=== PATIENT | male | born 1980 | race Caucasian/White ===

== ENCOUNTER 2018-02-19 11:41 | Emergency (ER) | payer OTHER, SELFPAY ==
[2018-02-19 11:49] VITALS: BP 173/114; PULSE 84; RESP 16; TEMP 37.1; O2SAT 97
--- NOTE | 2018-02-19 12:15 | DI.CT_ITS ---
SYMPTOMS/DIAGNOSIS: LEFT INGUINAL PAIN AND SWELLING S/P LEG INJURY ABDOMINAL AND PELVIC CT: CT examination of the abdomen and pelvis was performed with a bolus infusion of 125 cc of Omnipaque 350. Images obtained through the lung bases are unremarkable. The liver is unremarkable in appearance except for a small right lobe low attenuation lesion, which may represent a cyst. Gallbladder and bile ducts are CT normal. The pancreas is unremarkable in appearance as is the spleen. Adrenals and kidneys appear normal. No urinary tract calcification or obstruction. No abdominal or pelvic adenopathy seen. Small bilateral fat- containing inguinal hernias are noted. Abdominal aorta is of normal diameter and no major vascular abnormality is seen. Appendix or appendiceal stump appears normal. No evidence of diverticulitis or bowel obstruction. CONCLUSION: No evidence of acute intraabdominal process.
--- NOTE | 2018-02-19 12:19 | W.ED.GENAD ---
Discharge Plan Discharge Details Chief Complaint: Abd Prob Clinical Impression: Inguinal strain Reason For Visit: LEG INJURY Primary Care Provider: WICHO,LOCAL ED Provider: Munir Melissa Disposition Patient Disposition: HOME Condition: Improving Home Meds and New Rx's Prescriptions: New ibuprofen 800 mg tablet 800 mg PO Q8H PRN (Reason: pain) Qty: 14 RF: 0 Continue metoprolol succinate 50 mg Tablet Extended Release 24 Hr 50 mg PO DAILY RF: 0 aspirin [Aspirin Low Dose] 81 mg Tablet,Delayed Release (Dr/Ec) 81 mg PO DAILY RF: 0 lisinopril-hydrochlorothiazide 10-12.5 mg Tablet 1 tab PO DAILY RF: 0 omeprazole magnesium [Prilosec OTC] 20 mg Tablet,Delayed Release (Dr/Ec) 40 mg PO DAILY PRNRF: 0 Discharge Instructions Instructions: Groin Strain (ED) Additional Instructions: Please follow-up with occupational medicine for recheck. No heavy lifting greater than 10 pounds for 1 week. Light duty at work. Return if he develop a fever, blood in the urine, worsening pain, bulge in the groin, or any other acute The occupational medicine office number: [phone] Stand Alone Forms: Work Release Medical Decision Making [facility] Narrative Medical decision making narrative: 37-year-old male presents with onset of left inguinal pain while externally rotating and abductor in his left leg entering the vehicle. He is afebrile and well-appearing, minimal distress, hypertensive with history of same. He has palpable mass in the left inguinal region. The patient's different diagnosis includes avulsion of groin muscle, hernia. IV placed, analgesia and fluids administered. Patient referred for laboratory testing and CT images. Diagnostics: Unremarkable chemistries, urinalysis unremarkable, CBC with white count 7, platelets 232, normal hematocrit of 45. Abdomen and pelvis CT with lymphadenopathy, small fat-containing hernias, no evidence of other abnormality. EKG reveals normal sinus rhythm, rate of 79, narrow QRS, no ST segment elevation Patient is improved, with some ongoing pain with movement of the left groin. May be muscle strain. Discussed with him that he will require 7-10 days off work with no heavy lifting, will refer to occupational medicine for recheck before return to work HPI - General Adult General Mode of arrival: ambulatory. Date/Time Provider Initiated Documentation: 02/19/18 12:02. Limitations to Documentation: no limitations. Information obtained by: patient. History of Present Illness 37 year old M presents to the emergency department with the chief complaint of Abdomina/groin pain, described as moderate, Quality is described as aching and sharp, and is localized to the abdomen and left. Immobilization improves symptom(s), Movement worsens symptoms . Patient notes no other symptoms.. HPI Narrative: 37-year-old male states he was climbing into the passenger Of an elevated pickup truck, grabbing upwards with his right hand and swinging his left leg in external rotation and abduction. He felt an immediate pop in the left groin and has had persistent sharp and aching pain that is worse with movement, nonradiating, without associated dysuria, nausea, or vomiting. States he has otherwise recently been well. He does not have any back pain Related Data Home Medications Medication Instructions Recorded Confirmed aspirin [Aspirin Low Dose] 81 mg PO DAILY 02/19/18 02/19/18 lisinopril-hydrochlorothiazide 1 tab PO DAILY 02/19/18 02/19/18 metoprolol succinate 50 mg PO DAILY 02/19/18 02/19/18 omeprazole magnesium [Prilosec OTC] 40 mg PO DAILY PRN 02/19/18 02/19/18 Previous Rx's Medication Instructions Recorded ibuprofen 800 mg PO Q8H PRN #14 tab 02/19/18 Allergies Allergy/AdvReac Type Severity Reaction Status Date / Time hydromorphone HCl AdvReac Severe violent Unverified 02/19/18 11:54 [From Dilaudid] behavior morphine AdvReac Severe violent Unverified 02/19/18 11:54 behavior hydromorphone [From Dilaudid] AdvReac Intermediate Psychosis Unverified 02/19/18 11:54 General Stated Complaint: Abd Prob MANE: 3 Review of Systems Review of Systems 8 systems reviewed, otherwise negative PFSH Social History Smoking/Tobacco Use Status: Current every day Exam Const General: cooperative and comfortable Nutritional Appearance: well nourished Orientation: alert, awake and oriented x3 HENMT Head: normal to inspection, normocephalic and atraumatic Eyes General: appearance normal, both eyes and all related structures Conjunctivae: conjunctivae normal Pupils: PERRL EOM: EOM intact bilaterally Resp Effort & Inspection: normal respiratory effort and able to speak in complete sentences Auscultation: clear to auscultation bilaterally Cardio Rate: regular rate Rhythm: regular rhythm Heart Sounds: no murmurs GI Inspection: normal to inspection and other (Tender to palpation left inguinal crease with approximately 3 cm area of mobile, tender firmness, question reducible.) Palpation: soft Auscultation: normal bowel sounds Skin Lesions: no lesions Rashes: no rashes Neuro General: alert, awake and oriented x3 Extrem General: normal to inspection, full ROM and normal capillary refill Psych Appearance: grossly normal Mental Status: mental status grossly normal Mood: congruent mood Affect: normal affect Course Vital Signs Temperature 37.1 C 02/19/18 11:49 Pulse 84 02/19/18 11:49 Respiratory Rate 16 02/19/18 11:49 Blood Pressure 173/114 H 02/19/18 11:49 Pulse Oximetry 97 02/19/18 11:49 Temperature 37.1 C 02/19/18 11:49 Pulse 84 02/19/18 11:49 Respiratory Rate 16 02/19/18 11:49 Blood Pressure 173/114 H 02/19/18 11:49 Pulse Oximetry 97 02/19/18 11:49
--- NOTE | 2018-02-19 12:24 | ED.GENADUL_ITS ---
Discharge Plan Discharge Details Chief Complaint: Abd Prob Clinical Impression: Inguinal strain Reason For Visit: LEG INJURY Primary Care Provider: WICHO,LOCAL ED Provider: Munir Melissa Disposition Patient Disposition: HOME Condition: Improving Home Meds and New Rx's Prescriptions: New ibuprofen 800 mg tablet 800 mg PO Q8H PRN (Reason: pain) Qty: 14 RF: 0 Continue metoprolol succinate 50 mg Tablet Extended Release 24 Hr 50 mg PO DAILY RF: 0 aspirin [Aspirin Low Dose] 81 mg Tablet,Delayed Release (Dr/Ec) 81 mg PO DAILY RF: 0 lisinopril-hydrochlorothiazide 10-12.5 mg Tablet 1 tab PO DAILY RF: 0 omeprazole magnesium [Prilosec OTC] 20 mg Tablet,Delayed Release (Dr/Ec) 40 mg PO DAILY PRNRF: 0 Discharge Instructions Instructions: Groin Strain (ED) Additional Instructions: Please follow-up with occupational medicine for recheck. No heavy lifting greater than 10 pounds for 1 week. Light duty at work. Return if he develop a fever, blood in the urine, worsening pain, bulge in the groin, or any other acute The occupational medicine office number: [phone] Stand Alone Forms: Work Release Medical Decision Making [facility] Narrative Medical decision making narrative: 37-year-old male presents with onset of left inguinal pain while externally rotating and abductor in his left leg entering the vehicle. He is afebrile and well-appearing, minimal distress, hypertensive with history of same. He has palpable mass in the left inguinal region. The patient's different diagnosis includes avulsion of groin muscle, hernia. IV placed, analgesia and fluids administered. Patient referred for laboratory testing and CT images. Diagnostics: Unremarkable chemistries, urinalysis unremarkable, CBC with white count 7, platelets 232, normal hematocrit of 45. Abdomen and pelvis CT with lymphadenopathy, small fat-containing hernias, no evidence of other abnormality. EKG reveals normal sinus rhythm, rate of 79, narrow QRS, no ST segment elevation Patient is improved, with some ongoing pain with movement of the left groin. May be muscle strain. Discussed with him that he will require 7-10 days off work with no heavy lifting, will refer to occupational medicine for recheck before return to work HPI - General Adult General Mode of arrival: ambulatory . Date/Time Provider Initiated Documentation: 02/19/18 12:02 . Limitations to Documentation: no limitations . Information obtained by: patient . History of Present Illness 37 year old M presents to the emergency department with the chief complaint of Abdomina/groin pain, described as moderate, Quality is described as aching and sharp, and is localized to the abdomen and left. Immobilization improves symptom(s), Movement worsens symptoms . Patient notes no other symptoms.. HPI Narrative: 37-year-old male states he was climbing into the passenger Of an elevated pickup truck, grabbing upwards with his right hand and swinging his left leg in external rotation and abduction. He felt an immediate pop in the left groin and has had persistent sharp and aching pain that is worse with movement, nonradiating, without associated dysuria, nausea, or vomiting. States he has otherwise recently been well. He does not have any back pain Related Data Home Medications Medication Instructions Recorded Confirmed aspirin [Aspirin Low Dose] 81 mg PO DAILY 02/19/18 02/19/18 lisinopril-hydrochlorothiazide 1 tab PO DAILY 02/19/18 02/19/18 metoprolol succinate 50 mg PO DAILY 02/19/18 02/19/18 omeprazole magnesium [Prilosec OTC] 40 mg PO DAILY PRN 02/19/18 02/19/18 Previous Rx's Medication Instructions Recorded ibuprofen 800 mg PO Q8H PRN #14 tab 02/19/18 Allergies Allergy/AdvReac Type Severity Reaction Status Date / Time hydromorphone HCl AdvReac Severe violent Unverified 02/19/18 11:54 [From Dilaudid] behavior morphine AdvReac Severe violent Unverified 02/19/18 11:54 behavior hydromorphone [From Dilaudid] AdvReac Intermediate Psychosis Unverified 11:54 General Stated Complaint: Abd Prob MANE: 3 Review of Systems Review of Systems 8 systems reviewed, otherwise negative PFSH Social History Smoking/Tobacco Use Status: Current every day Exam Const General: cooperative and comfortable Nutritional Appearance: well nourished Orientation: alert, awake and oriented x3 HENMT Head: normal to inspection, normocephalic and atraumatic Eyes General: appearance normal, both eyes and all related structures Conjunctivae: conjunctivae normal Pupils: PERRL EOM: EOM intact bilaterally Resp Effort & Inspection: normal respiratory effort and able to speak in complete sentences Auscultation: clear to auscultation bilaterally Cardio Rate: regular rate Rhythm: regular rhythm Heart Sounds: no murmurs GI Inspection: normal to inspection and other (Tender to palpation left inguinal crease with approximately 3 cm area of mobile, tender firmness, question reducible.) Palpation: soft Auscultation: normal bowel sounds Skin Lesions: no lesions Rashes: no rashes Neuro General: alert, awake and oriented x3 Extrem General: normal to inspection, full ROM and normal capillary refill Psych Appearance: grossly normal Mental Status: mental status grossly normal Mood: congruent mood Affect: normal affect Course Vital Signs Temperature 37.1 C 02/19/18 11:49 Pulse 84 02/19/18 11:49 Respiratory Rate 16 02/19/18 11:49 Blood Pressure 173/114 H 02/19/18 11:49 Pulse Oximetry 97 02/19/18 11:49 Temperature 37.1 C 02/19/18 11:49 Pulse 84 02/19/18 11:49 Respiratory Rate 16 02/19/18 11:49 Blood Pressure 173/114 H 02/19/18 11:49 Pulse Oximetry 97 02/19/18 11:49
[2018-02-19] MEDS: Lactated Ringers 1,000 ML 1000 ML IV (12:40)
[2018-02-19] MEDS: Ketorolac 15 MG/ML VIAL IVP (12:45)
[2018-02-19 12:48] LABS: Abs Immature Grans 0.03 k/cumm (0.0-0.09); Absolute Basophil Count 0.02 k/cumm (0.0-0.2); Absolute Eosinophil Count 0.12 k/cumm (0.0-0.7); Absolute Lymphocyte Count 1.93 k/cumm (1.2-3.4); Absolute Monocyte Count 0.46 k/cumm (0.11-0.7); Absolute Neutrophil Count 5.15 k/cumm (1.2-6.7); Basophils % 0.3; Eosinophils % 1.6; HCT 45.2 % (40.0-50.0); Immature Grans % 0.4; Mean Corp. HGB Concentration 35.4 g/dL (32.0-36.0); Mean Corpuscular Hemoglobin 31.1 pg (27.0-33.0); Mean Corpuscular Volume 87.9 fL (80-95); Mean Platelet Volume 9.3 fL (8.0-11.0); Neutrophils % 66.7; Platelet Count 232 x1000/uL (130-400); RBC 5.14 m/cumm (4.50-6.00); RBC Distribution Width 13.1 % (11.8-14.1); White Blood Cell Count 7.71 k/cumm (4.4-10.8)
[2018-02-19 13:07] LABS: ALT 34 U/L (12-78); AST 23 U/L (15-37); Albumin 3.7 g/dL (3.4-5.0); Alkaline Phosphatase 51 U/L (46-116); Anion Gap 8.1 mmol/L (3-11); BUN 9 mg/dL (7-18); Bilirubin, Total 0.4 mg/dL (0.2-1.0); CO2 27.9 mmol/L (21.0-32.0); CREATININE 0.87 mg/dL (0.70-1.30); Calcium 8.3 mg/dL (8.5-10.1); Chloride 105 mmol/L (98-107); Glucose 98 mg/dL (70-100); Potassium 3.5 mmol/L (3.5-5.1); Sodium 141 mmol/L (136-145); Total Protein 7.3 g/dL (6.4-8.2)
[2018-02-19 13:20] LABS: Bilirubin Negative (Negative); Blood Trace-intact (Negative); Clarity Clear; Glucose Negative (Negative); Ketones Negative (Negative); Leukocyte Esterase Negative (Negative); Nitrite Negative (Negative); Urobilinogen 0.2 EU/dL (Up TO 0.2)
[2018-02-19 13:28] LABS: Bacteria Rare HPF (Negative); C & S Indicated? No; Casts Negative LPF (Negative); Crystals Negative HPF (Negative); Epithelial Cells Negative HPF (Negative); Mucus Negative (Negative); Other Cells Negative (Negative); RBC 0-2 (0-2); WBC 0-2 HPF (0-5)
[2018-02-19] MEDS: Omnipaque 350 MG/ML 50 ML BTL IJ (13:54)
[2018-02-19] MEDS: Breeza Beverage 473 ML BTL PO (13:55)
[2018-02-19] MEDS: Omnipaque 350 MG/ML 100 ML BTL IJ (13:55)
[2018-02-19 14:50] VITALS: BP 159/121; PULSE 85; RESP 16; TEMP 37; O2SAT 97
== END 2018-02-19 15:00 | disposition home or self-care (01) ==
PROVIDERS: Emergency Provider Emergency Medicine
DX: S76.212A Strain of adductor muscle, fascia and tendon of left thigh, initial encounter (principal); X50.9XXA Other and unspecified overexertion or strenuous movements or postures, initial encounter; I10 Essential (primary) hypertension
CPT/HCPCS: 36415; 36416; 80053; 82962; 93005; 96361; 96374; 99285; 74177; 81003; 81015; 85025; 93010; 99284; J1885; J3490; Q9967

== ENCOUNTER 2018-08-09 19:59 | Emergency (ER) | payer SELFPAY ==
[2018-08-09 20:04] VITALS: BP 197/122; PULSE 97; RESP 16; TEMP 36.4; O2SAT 98
[2018-08-09] MEDS: Balanced Salt Solution 15 ML BTL OP (20:29)
[2018-08-09] MEDS: Tetracaine 0.5% 4 ML BTL OP (20:30)
[2018-08-09] MEDS: Fluorescein STRIPS 100/BOX 1 MG OP (20:30)
[2018-08-09] MEDS: Erythromycin Ophth Oint 3.5 GM TUBE OD (20:30)
--- NOTE | 2018-08-09 20:30 | W.ED.GENAD ---
Discharge Plan Disposition Patient Disposition: HOME Discharge Details Chief Complaint: EyeProblem Clinical Impression: Inflammation of eye, right, Corneal abrasion, right, Hypertension Primary Care Provider: Jamal Bertrand ED Provider: Kenny Galo Home Meds and New Rx's Prescriptions: New moxifloxacin 0.5 % drops See Rx Instructions .ROUTE .COMPLEX 7 Days RF: 0 Continued metoprolol succinate 50 mg Tablet Extended Release 24 Hr 50 mg PO DAILY RF: 0 aspirin [Aspirin Low Dose] 81 mg Tablet,Delayed Release (Dr/Ec) 81 mg PO DAILY RF: 0 lisinopril-hydrochlorothiazide 10-12.5 mg Tablet 1 tab PO DAILY RF: 0 Prilosec OTC 20 mg Tablet,Delayed Release (Dr/Ec) 40 mg PO DAILY PRNRF: 0 ibuprofen 800 mg tablet 800 mg PO Q8H PRN (Reason: pain) Qty: 14 RF: 0 Discharge Instructions Instructions: Moxifloxacin (Into the eye), Corneal Abrasion (ED) Additional Instructions: Use antibiotic as directed: apply 2 drop into the right eye every 2 hours while awake for 2 days, then every 4-8 hours for 5 days. Please contact your eyelet row marker to arrange follow-up. Follow-up with your primary care physician regarding her elevated blood pressure. It is extremely important to take your medication as prescribed. Return to the ER for any worsening or new concerning symptoms. Referrals: [facility] [Outside] Jamal Bertrand MD [Primary Care Provider] - Medical Decision Making 38-year-old male contact lens wearer with history of hypertension here with inflammation of his right eye. Punctate corneal abrasion noted at 11:00. Plan to treat with moxifloxacin. Usual and customary discharge instructions were provided. Patient was instructed to not use his contact lenses until symptoms completely cleared after a week of treatment. He was instructed to follow-up with his gasket inspector. Patient was informed of his elevated blood pressure. He notes that he is noncompliant with treatment regimen. I explained the importance of maintaining compliance with antihypertensive. I will give him a dose tonight as he is here in the hospital with his . He understands importance of continuing his antihypertensive as prescribed. I encouraged him to follow-up with his primary care physician. Smoking cessation counseling was provided. HPI General Mode of arrival: ambulatory. Date/Time Provider Initiated Documentation: 08/09/18 20:00. Limitations to Documentation: no limitations. Information obtained by: patient. HPI Narrative: 38-year-old male with history of hypertension, presents with chief complaint of right eye irritation. Patient notes that around noon today started to have some irritation right eye. Patient states he wears contact in this eye. He removed contact and symptoms have persisted. States feels like there is something in his eye. Symptoms seem worse right upper outer eye. He has had associated tearing. Clear tears. Mild swelling of the eye. No visual changes from baseline. Patient also notes he has been noncompliant with his antihypertensive regimen. Related Data Home Medications Medication Instructions Recorded Confirmed Prilosec OTC 40 mg PO DAILY PRN 02/19/18 08/09/18 aspirin [Aspirin Low Dose] 81 mg PO DAILY 02/19/18 08/09/18 ibuprofen 800 mg PO Q8H PRN #14 tab 02/19/18 08/09/18 lisinopril-hydrochlorothiazide 1 tab PO DAILY 02/19/18 08/09/18 metoprolol succinate 50 mg PO DAILY 02/19/18 08/09/18 moxifloxacin See Rx Instructions .ROUTE 08/09/18 .COMPLEX 7 Days ml Previous Rx's Medication Instructions Recorded ibuprofen 800 mg PO Q8H PRN #14 tab 02/19/18 moxifloxacin See Rx Instructions .ROUTE 08/09/18 .COMPLEX 7 Days ml Allergies Allergy/AdvReac Type Severity Reaction Status Date / Time hydromorphone HCl AdvReac Severe violent Unverified 08/09/18 20:09 [From Dilaudid] behavior morphine AdvReac Severe violent Unverified 08/09/18 20:09 behavior hydromorphone [From Dilaudid] AdvReac Intermediate Psychosis Unverified 08/09/18 20:09 General Stated Complaint: EyeProblem MANE: 4 Review of Systems Constitutional Denies fever(s) Eyes Reports as per HPI [facility] Medical History Hypertension (Chronic) Social History Smoking and Tabacco status: Current every day Exam Const General: cooperative, healthy appearing and comfortable Orientation: alert and awake [facility] General nose exam: external nose normal Face and sinus: normal facial exam Eyes Cornea: corneas abnormal on the right abrasion punctate and at the following clock position (11:00) and fluorescein used Pupils: PERRL EOM: EOM intact bilaterally Direct ophthalmoscopy: no papilledema Resp Effort & Inspection: normal respiratory effort Auscultation: clear to auscultation bilaterally Cardio Rate: regular rate Rhythm: regular rhythm Heart Sounds: S1 normal and S2 normal Neuro General: alert and oriented x3 Cognition: normal cognition Speech: speech normal Gait: normal gait Course Vital Signs Temperature 36.4 C L 08/09/18 20:04 Pulse 97 H 08/09/18 20:04 Respiratory Rate 16 08/09/18 20:04 Blood Pressure 197/122 H 08/09/18 20:04 Pulse Oximetry 98 08/09/18 20:04 Temperature 36.4 C L 08/09/18 20:04 Temperature Source Temporal Artery Scan 08/09/18 20:04 Pulse 97 H 08/09/18 20:04 Respiratory Rate 16 08/09/18 20:04 Respiratory Effort Non-Labored 08/09/18 20:07 Blood Pressure 197/122 H 08/09/18 20:04 Blood Pressure Position Sitting 08/09/18 20:04 Pulse Oximetry 98 08/09/18 20:04 Oxygen Delivery Method Room Air 08/09/18 20:04 Oxygen Flow Rate 0 08/09/18 20:04 Pain Level 3 08/09/18 20:04 Comment 08/09/18 20:04
[2018-08-09] MEDS: Metoprolol 25 MG TAB 50 MG PO (20:55)
[2018-08-09 20:58] VITALS: BP 185/114; PULSE 97; RESP 16; TEMP 36.4; O2SAT 98
== END 2018-08-09 21:05 | disposition home or self-care (01) ==
PROVIDERS: Emergency Provider Student in an Organized Health Care Education/Training Program; PCP Internal Medicine
DX: H57.89 Other specified disorders of eye and adnexa (principal); S05.01XA Injury of conjunctiva and corneal abrasion without foreign body, right eye, initial encounter; X58.XXXA Exposure to other specified factors, initial encounter; T46.4X6A Underdosing of angiotensin-converting-enzyme inhibitors, initial encounter; Z91.14 Patient's other noncompliance with medication regimen; I10 Essential (primary) hypertension
CPT/HCPCS: 99283

== ENCOUNTER 2019-05-28 10:46 | Outpatient (REF) | payer SELFPAY ==
[2019-05-28 22:35] LABS: Hemoglobin A1C 5.6 % (4.5-6.2)
[2019-05-28 22:42] LABS: ALT 39 U/L (16-63); AST 26 U/L (15-37); Anion Gap 11.4 mmol/L (3-11); BUN 9 mg/dL (7-18); CO2 26.6 mmol/L (21.0-32.0); CREATININE 0.77 mg/dL (0.70-1.30); Calcium 8.9 mg/dL (8.5-10.1); Calculated LDL 106 mg/dL; Chloride 104 mmol/L (98-107); Cholesterol 165 mg/dL (<200); Glucose 107 mg/dL (74-106); HDL Cholesterol 35 mg/dL (40-60); Sodium 142 mmol/L (136-145); Triglyceride 124 mg/dL (<150)
== END 2019-05-28 11:06 ==
LOC: NCHCN 10:46
PROVIDERS: PCP Internal Medicine; Visit Provider Nurse Practitioner Family
DX: I10 Essential (primary) hypertension (principal); Z13.220 Encounter for screening for lipoid disorders; Z13.1 Encounter for screening for diabetes mellitus
CPT/HCPCS: 80048; 80061; 83036; 84450; 84460

== ENCOUNTER 2020-12-10 11:10 | Emergency (ER) | payer SELFPAY ==
[2020-12-10 11:13] VITALS: BP 198/124; PULSE 91; RESP 16; TEMP 36.7; O2SAT 97
[2020-12-10 11:29] VITALS: BP 180/99
[2020-12-10 11:33] VITALS: BP 166/104
[2020-12-10 11:47] VITALS: BP 157/107
--- NOTE | 2020-12-10 12:27 | ED.GENADUL_ITS ---
Discharge Plan Disposition Patient Disposition: HOME Condition: Stable Discharge Details Clinical Impression: Hypertension Primary Care Provider: Jamal Bertrand ED Provider: Gautam Bautista Home Meds and New Rx's Prescriptions: New amlodipine 5 mg tablet 5 mg PO DAILY Qty: 30 RF: 0 Continued aspirin [Aspirin Low Dose] 81 mg Tablet,Delayed Release (Dr/Ec) 81 mg PO DAILY RF: 0 omeprazole magnesium [Prilosec OTC] 20 mg Tablet,Delayed Release (Dr/Ec) 40 mg PO DAILY PRNRF: 0 ibuprofen 800 mg tablet 800 mg PO Q8H PRN (Reason: pain) Qty: 14 RF: 0 hydroxyzine HCl 25 mg Tablet 25 mg PO TID RF: 0 diltiazem HCl 240 mg Capsule,Extended Release 24hr 240 mg PO DAILY RF: 0 hydrochlorothiazide 25 mg Tablet 25 mg PO DAILY RF: 0 Discontinued metoprolol succinate 50 mg Tablet Extended Release 24 Hr 50 mg PO DAILY RF: 0 lisinopril-hydrochlorothiazide 10-12.5 mg Tablet 1 tab PO DAILY RF: 0 Discharge Instructions Instructions: Hypertension (ED) Additional Instructions: At this time your blood pressure is still elevated but not emergent and you are asymptomatic. I personally spoke with your primary care provider, Dr. Cesar, the plan is to add on amlodipine as directed and her office will contact you on Sunday to discuss setting up an outpatient appointment. Continue taking your Prilosec, hydrochlorothiazide, diltiazem, hydroxyzine as directed. Watch for new or worsening symptoms and return to the ER for any concerns. Discharge Data Discharge Date/Time-TO BE ENTERED AT DEPARTURE: 12/10/20 12:45 Medical Decision Making 40-year-old gentleman, former smoker, obesity, uncontrolled hypertension, presents with a blood pressure reading on his home machine of 125/70. He is currently asymptomatic. Denies headache, visual changes, neck pain, chest pain, shortness of breath, numbness, tingling, weakness. He is neurologically intact. He is unsure of exactly what medications he takes. Patient was observed in the ER for over 1 hour, blood pressure readings continue to decline without any intervention, 198/124, 180/99, 166/104, 157/107. I was able to speak with Dr. Cesar, the patient's primary care provider. Able to confirm that he is currently taking Prilosec, hydrochlorothiazide, diltiazem and hydroxyzine. Discussed his most recent blood pressure of 157/107 and his presentation which is completely asymptomatic. No further emergent work-up required here in the ER. Will add on 5 mg amlodipine today and over the weekend, and she will have her office reach out to the patient on Sunday so that he may be seen in the office that day. Patient is comfortable with this plan and has no additional questions or concerns. He was encouraged to return to the ER for new or worsening symptoms. Medical Records Medical records reviewed: Yes I reviewed the patient's medical records. HPI General Mode of arrival: ambulatory . Date/Time Provider Initiated Documentation: 12/10/20 11:10 . Limitations to Documentation: no limitations . Information obtained by: patient . HPI Narrative: This is a 40-year-old male, past medical history of hypertension, presenting to the ER reporting a blood pressure at home this morning as high as 220/170. Patient reports that he was simply checking his blood pressure randomly, was asymptomatic and continues to be asymptomatic. He contacted his primary care office and was directed to the ER with a blood pressure that high. Patient reports a long history of hypertension, multiple medication changes, and most frequently started fresh approximately 6 months ago. He was discontinued from his chronic medications and began a new regimen. Unfortunately he is unsure exactly what these med ications are. Patient denies headache, visual change, neck pain, chest pain, shortness of breath, abdominal pain, nausea or vomiting, pain or swelling in his extremities. Patient is a former smoker. Patient is obese but reports that his weight has been fairly steady. Patient has no additional concerns or complaints at this time. Related Data Home Medications Medication Instructions Recorded Confirmed aspirin [Aspirin Low Dose] 81 mg PO DAILY 02/19/18 08/09/18 ibuprofen 800 mg PO Q8H PRN #14 tab 02/19/18 08/09/18 omeprazole magnesium [Prilosec OTC] 40 mg PO DAILY PRN 02/19/18 12/10/20 amlodipine 5 mg PO DAILY #30 tab 12/10/20 diltiazem HCl 240 mg PO DAILY 12/10/20 12/10/20 hydrochlorothiazide 25 mg PO DAILY 12/10/20 12/10/20 hydroxyzine HCl 25 mg PO TID 12/10/20 12/10/20 Previous Rx's Medication Instructions Recorded ibuprofen 800 mg PO Q8H PRN #14 tab 02/19/18 amlodipine 5 mg PO DAILY #30 tab 12/10/20 Allergies Allergy/AdvReac Type Severity Reaction Status Date / Time hydromorphone HCl AdvReac Severe violent Unverified 12/10/20 11:18 [From Dilaudid] behavior morphine AdvReac Severe violent Unverified 12/10/20 11:18 behavior hydromorphone [From Dilaudid] AdvReac Intermediate Psychosis Unverified 12/10/20 11:18 General Stated Complaint: GenMedical MANE: 4 Review of Systems Constitutional Constitutional: Denies fatigue, Denies fever(s) and Denies weakness Eyes Eyes: Denies change in vision ENT Ears, Nose, Mouth, and Throat: Denies neck pain Cardiovascular Cardiovascular: Denies chest pain and Denies dyspnea Respiratory Respiratory: Denies dyspnea Gastrointestinal Gastrointestinal: Denies abdominal pain, Denies nausea and Denies vomiting Musculoskeletal Musculoskeletal: Denies back pain, Denies neck pain, Denies numbness and Denies tingling Integumentary/Breasts Skin/Breast: Denies erythema Neurologic Neurologic: Denies numbness, Denies tingling and Denies weakness Endocrine Endocrine: Denies fatigue PFSH Medical History Hypertension Social History Smoking/Tobacco Use Status: Current every day Smoking risk assessment performed?: Yes Drug use: Never Do you feel safe at home: Yes Do you feel safe in your relationship?: Yes Exam Const General: cooperative, healthy appearing, comfortable and no acute distress Orientation: alert, awake and oriented x3 HENMT Head: normal to inspection, normocephalic and atraumatic Eyes General: appearance normal, both eyes and all related structures Conjunctivae: conjunctivae normal Neck Neck: normal visual inspection, full ROM, trachea midline and supple Resp Effort & Inspection: normal respiratory effort and able to speak in complete sentences Auscultation: clear to auscultation bilaterally Cardio Rate: regular rate Rhythm: regular rhythm GI Inspection: obesity Palpation: soft and nontender Back/Spine/Pelvis Back: No back tenderness Skin General skin exam: no rashes or lesions noted Neuro General: patient alert, patient awake, moves all extremities and no focal motor deficits Cognition: normal cognition Speech: speech normal Gait: normal gait Motor: muscle tone normal throughout Sensory Exam: no sensory deficits noted Extrem General: normal to inspection, full ROM, no pedal edema and no calf tenderness Psych Appearance: grossly normal Mental Status: mental status grossly normal Course Vital Signs Vital signs: Vital Signs Temperature 36.7 C 12/10/20 11:13 Pulse 91 H 12/10/20 11:13 Respiratory Rate 16 12/10/20 11:13 Blood Pressure 198/124 H 12/10/20 11:13 Pulse Oximetry 97 12/10/20 11:13 Temperature 36.7 C 12/10/20 11:13 Temperature Source Skin 12/10/20 11:13 Pulse 91 H 12/10/20 11:13 Respiratory Rate 16 12/10/20 11:13 Respiratory Effort Non-Labored 12/10/20 11:34 Respiratory Depth Normal 12/10/20 11:34 Respiratory Pattern Normal 12/10/20 11:34 Blood Pressure 157/107 H 12/10/20 11:47 Blood Pressure Position Sitting 12/10/20 11:13 Pulse Oximetry 97 12/10/20 11:13 Oxygen Delivery Method Room Air 12/10/20 11:13 Oxygen Flow Rate 0 12/10/20 11:13 Pain Level 0 12/10/20 11:13
[2020-12-10 12:30] VITALS: BP 172/104
== END 2020-12-10 12:45 | disposition home or self-care (01) ==
PROVIDERS: Emergency Provider Physician Assistant; PCP Internal Medicine
DX: I10 Essential (primary) hypertension (principal)
CPT/HCPCS: 99283

== ENCOUNTER 2021-12-11 10:42 | Emergency (ER) | payer MEDICAID, SELFPAY ==
[2021-12-11 10:56] VITALS: BP 157/118; PULSE 96; RESP 16; TEMP 36.9; O2SAT 96
--- NOTE | 2021-12-11 10:57 | ED.GENADUL_ITS ---
Discharge Plan Disposition Patient Disposition: HOME Condition: Stable Discharge Details Clinical Impression: Acute bacterial conjunctivitis of left eye Primary Care Provider: Jamal Bertrand ED Provider: Erna Hui Home Meds and New Rx's Prescriptions: Continued aspirin [Dax Low Dose Aspirin] 81 mg Tablet,Delayed Release (Dr/Ec) 81 mg PO DAILY omeprazole magnesium [Prilosec OTC] 20 mg Tablet,Delayed Release (Dr/Ec) 40 mg PO DAILY PRN ibuprofen 800 mg tablet 800 mg PO Q8H PRN (Reason: pain) Qty: 14 0RF hydroxyzine HCl 25 mg Tablet 25 mg PO TID diltiazem HCl 240 mg Capsule,Extended Release 24hr 240 mg PO DAILY hydrochlorothiazide 25 mg Tablet 25 mg PO DAILY amlodipine 5 mg tablet 5 mg PO DAILY Qty: 30 0RF Discharge Instructions Instructions: Conjunctivitis (ED) Additional Instructions: Apply half-inch ribbon of the erythromycin ointment to your left eye 4 times daily for the next 5 to 7 days. Wash your hands if you touch your face as bacterial conjunctivitis is contagious and can be spread easily to your other eye or other people. Follow-up with your primary care doctor in 1 week as needed. Return to the emergency department with any worsening or new concerning symptoms. Discharge Data Discharge Date/Time-TO BE ENTERED AT DEPARTURE: 12/11/21 11:19 Discharge Physician: Erna Hui Medical Decision Making 41-year-old male presents with left eye irritation, itching with yellow dischar ge and crusting that he noted upon awakening this morning. Denies any known exposure to bacterial conjunctivitis. Patient states he has had bacterial conjunctivitis in the past and states this is similar. Denies any known injury. Patient provided a picture on his cell phone of his left eye this morning upon awakening and there was significant eyelid edema and yellow crusting in his eye. There is no significant erythema at that time. He does have soft boggy edema of the left upper eyelid but no erythema or pain with EOMI that would suggest orbital cellulitis. He has left eye conjunctival injection. PERRLA. He otherwise appears comfortable and nontoxic. As this is similar to his previous presentation of conjunctivitis and there was report of yellow crusting and discharge, suspect most likely bacterial conjunctivitis at this time and do not see indication for labs or imaging as history and presentation does not appear consistent with orbital cellulitis. Patient was advised to apply erythromycin ointment 4 times daily to the left eye for the next 5 to 7 days and cool compresses to his eyelids as needed. Advised on importance of handwashing due to contagiousness. Advised to follow up with the primary care doctor for re- evaluation. Usual and customary return precautions given prior to discharge. Medical Records Medical records reviewed: Yes I reviewed the patient's medical records. HPI General Mode of arrival: ambulatory . Date/Time Provider Initiated Documentation: 12/11/21 10:57 . Limitations to Documentation: no limitations . Information obtained by: patient . HPI Narrative: Patient is a 41-year-old male with a history of hypertension, hyperlipidemia, obesity, GERD who presents to the ED with a complaint of left eye irritation, itching, eyelid swelling with yellow crusting and discharge that he noticed upon awakening this morning. He states he was unsure of any exposure to pinkeye but has had pinkeye several times before and states this feels similar. He denies any fever, headache, dizziness or known injury to his eyes. Related Data Home Medications Medication Instructions Recorded Confirmed aspirin 81 mg tablet,delayed 81 mg PO DAILY 02/19/18 12/11/21 release (Dax Low Dose Aspirin) ibuprofen 800 mg tablet 800 mg PO Q8H PRN pain #14 tabs 02/19/18 12/11/21 omeprazole magnesium 20 mg 40 mg PO DAILY PRN 02/19/18 12/11/21 tablet,delayed release (Prilosec OTC) amlodipine 5 mg tablet 5 mg PO DAILY #30 tabs 12/10/20 12/11/21 diltiazem HCl 240 mg 240 mg PO DAILY 12/10/20 12/11/21 capsule,extended release 24 hr hydrochlorothiazide 25 mg tablet 25 mg PO DAILY 12/10/20 12/11/21 hydroxyzine HCl 25 mg tablet 25 mg PO TID 12/10/20 12/11/21 Previous Rx's Medication Instructions Recorded ibuprofen 800 mg tablet 800 mg PO Q8H PRN pain #14 tabs 02/19/18 amlodipine 5 mg tablet 5 mg PO DAILY #30 tabs 12/10/20 Allergies Allergy/AdvReac Type Severity Reaction Status Date / Time hydromorphone HCl AdvReac Severe violent Unverified 12/11/21 10:59 [From Dilaudid] behavior morphine AdvReac Severe violent Unverified 12/11/21 10:59 behavior hydromorphone [From Dilaudid] AdvReac Intermediate Psychosis Unverified 12/11/21 10:59 General Stated Complaint: EyeProblem MANE: 4 Review of Systems All systems reviewed & are unremarkable except as noted in HPI and below Constitutional Constitutional: Reports as per HPI, Denies chills and Denies fever(s) Eyes Eyes: Denies blurry vision, Reports eye discharge, Reports irritation and Reports itchy eyes ENT Ears, Nose, Mouth, and Throat: Denies dizziness, Denies sore throat and Denies throat swelling Cardiovascular Cardiovascular: Denies chest pain and Denies dyspnea Respiratory Respiratory: Denies cough and Denies dyspnea Gastrointestinal Gastrointestinal: Denies abdominal pain, Denies diarrhea and Denies vomiting Genitourinary Genitourinary: Denies hematuria and Denies dysuria Musculoskeletal Musculoskeletal: Denies back pain and Denies numbness Integumentary/Breasts Skin/Breast: Denies lesions and Denies rash Neurologic Neurologic: Denies dizziness, Denies localized weakness and Denies numbness Allergic/Immunologic Allergic/Immunologic: Reports itchy eyes and Denies throat swelling PFSH All Active Problems (Updated 12/13/21 @ 08:53 by Erna Hui DO) Hypertension (Chronic) Acute bacterial conjunctivitis of left eye (Acute) Medical History (Updated 12/13/21 @ 08:53 by Erna Hui DO) GERD (gastroesophageal reflux disease) Hypertension Obesity ALISIA on CPAP Surgical History (Updated 12/13/21 @ 08:53 by Erna Hui DO) History of dental surgery History of knee surgery Social History Smoking/Tobacco Use Status: Current every day Tobacco Type: cigarettes Smoking risk assessment performed?: Yes Drug use: Never Substance use type: does not use Do you feel safe at home: Yes Do you feel safe in your relationship?: Yes Exam Const General: cooperative, healthy appearing and no acute distress Orientation: alert, awake and oriented x3 HENMT Head: normal to inspection Ears: hearing grossly normal bilaterally and external ears normal Mouth: oral mucosae normal Eyes General: appearance normal, both eyes and all related structures Conjunctivae: conjunctival abnormality left conjunctival injection diffuse Pupils: PERRL EOM: EOM intact bilaterally Eyes/upper lids images: 1. Left upper eyelid edema. Neck Neck: normal visual inspection Resp Effort & Inspection: normal respiratory effort and able to speak in complete sentences Cardio Rate: regular rate Skin General skin exam: no rashes or lesions noted Neuro General: patient alert, patient awake and patient oriented x3 Motor: muscle tone normal throughout Extrem General: normal to inspection and full ROM Psych Appearance: grossly normal Affect: normal affect
[2021-12-11] MEDS: Erythromycin Ophth Oint 3.5 GM TUBE OU (11:15)
== END 2021-12-11 11:19 | disposition home or self-care (01) ==
PROVIDERS: Emergency Provider Physician Assistant; PCP Internal Medicine
DX: H10.32 Unspecified acute conjunctivitis, left eye (principal); I10 Essential (primary) hypertension; F17.210 Nicotine dependence, cigarettes, uncomplicated
CPT/HCPCS: 99283; 99284

== ENCOUNTER 2022-03-22 16:23 | Outpatient (REF) | payer MEDICAID, SELFPAY ==
[2022-03-24 11:08] LABS: COVID-19 RT-PCR UVMMC Result Positive (Negative)
== END 2022-03-22 16:24 | disposition home or self-care (01) ==
LOC: LBN 16:23
PROVIDERS: PCP Internal Medicine; Visit Provider Physician Assistant Medical
DX: J02.9 Acute pharyngitis, unspecified (principal); Z20.822 Contact with and (suspected) exposure to COVID-19
CPT/HCPCS: U0003; 87070

== ENCOUNTER 2024-09-03 10:17 | Emergency (ER) | payer SELFPAY ==
[2024-09-03] VITALS (9 sets, daily range): BP systolic 153–202; BP diastolic 104–137; PULSE 101–107; RESP 12–24; TEMP 37.9; O2SAT 92–96
--- NOTE | 2024-09-03 10:30 | RT.EKG_ITS ---
APPROVED REPORT Exam: Resting ECG Reason for Exam: SOB chest pain Patient Location: E HR:101 bpm ECG Measurements Heart Rate 101 AXIS [place] 196 P 28 QRSd 95 QRS 28 QT 375 T 76 QTc 487 Conclusion Sinus tachycardia, rate 101 No interval abnormalities No STEMI Q waves V1-V2 No priors available for comparison
--- NOTE | 2024-09-03 11:02 | ED.GENADUL_ITS ---
Discharge Plan Disposition Patient Disposition: Home Condition: Stable Discharge Details Clinical Impression: Left upper lobe pneumonia, Hypertension Primary Care Provider: Jamal Bertrand ED Provider: Kyara Garcia Home Meds and New Rx's Prescriptions: New amoxicillin 500 mg capsule 1,000 mg PO TID 5 Days Qty: 30 0RF azithromycin 250 mg tablet 250 mg PO DAILY 4 Days Qty: 4 0RF Rx Instructions: start on day 2 of therapy (09/04/2024) benzonatate 100 mg capsule 100 mg PO TID PRNQty: 14 0RF No Action aspirin [Dax Low Dose Aspirin] 81 mg Tablet,Delayed Release (Dr/Ec) 81 mg PO DAILY omeprazole magnesium [Prilosec OTC] 20 mg Tablet,Delayed Release (Dr/Ec) 40 mg PO DAILY PRN ibuprofen 800 mg tablet 800 mg PO Q8H PRN (Reason: pain) Qty: 14 0RF hydroxyzine HCl 25 mg Tablet 25 mg PO TID diltiazem HCl 240 mg Capsule,Extended Release 24hr 240 mg PO DAILY hydrochlorothiazide 25 mg Tablet 25 mg PO DAILY amlodipine 5 mg tablet 5 mg PO DAILY Qty: 30 0RF Discharge Instructions Instructions: Pneumonia, Adult (DC) Additional Instructions: You were seen in the emergency department today for evaluation of a cough and back pain and were found to have left upper lobe pneumonia. In our department you had a full physical examination performed, had laboratory studies that were otherwise reassuring, with no evidence of white blood cell count elevation, electrolyte abnormalities, or ongoing damage to your heart. Your COVID and influenza test was negative. We provided you with your first dose of antibiotics today, and you need to complete the course of both antibiotics until they are gone, even if you start to feel better. Additionally I have provided you with a prescription for cough medication which you can take as needed, and should supplement this with Tylenol and ibuprofen for body aches and fever. As we discussed, you need to be evaluated by your primary care physician, to discuss not only this visit but also reinitiation of your high blood pressure medications and routine screening examinations that need to occur at your age. We do recommend that you return to an emergency department if you develop chest pain, sudden change or worsening of your shortness of breath, or any other symptoms that cause you concern. Please follow-up with your primary care provider in the next few days to discuss this visit and any symptoms that change, worsen, or persist. Thank you for allowing us to be part of your care. Stand Alone Forms: Work Release HPI General Mode of arrival: ambulatory . Date/Time Provider Initiated Documentation: 09/03/24 10:26 . Limitations to Documentation: no limitations . Information obtained by: patient and old records reviewed . HPI Narrative: HPI: This is a 44-year-old male patient with a history of hypertension who is presenting for evaluation of shortness of breath and cough. The patient reports that this cough has been present for a few weeks, he recently had upper respiratory infections in the home as he has 4 young children, states that his symptoms have been worsening. Today he noticed that he was unable to perform his daily activities such as walking and carrying things for work without becoming short of breath and needing to take breaks, which is atypical for him and prompted him to seek care. The patient reports that he is experiencing bilateral chest wall and back pain, which improves with hot showers. States that his cough is productive of white sputum, states that he smokes approximately a pack every day and a half of cigarettes, does not have a history of asthma or COPD and does not use any inhalers. No personal history of cardiac disease, thromboembolic disease, denies unilateral leg swelling or pain. Exam: Gen: Awake and alert, in no apparent distress HEENT: Non-icteric sclera Neck: Supple Lungs: No apparent respiratory distress, normal respiratory effort. Lung sounds clear and equal bilaterally without wheezes, rhonchi, rales, the patient does have a hacking cough appreciated during this provider's examination CV: Appears well perfused, heart with tachycardic rate but regular rhythm, strong distal pulses. Abdomen: Non-distended MSK: Moves 4 extremities without apparent limitation in ROM. Trace bilateral peripheral edema to the lower extremities, no calf tenderness Skin: Visualized skin without rashes, cyanosis. Neuro: Normal Gait, no obvious focal deficits or facial asymmetry. Speaks in full, clear sentences. Psych: Appropriate for situation. MDM: This is a 44-year-old male patient presenting for evaluation of shortness of breath and cough. Differential includes but is not limited to viral upper respiratory infection, pneumonia, certainly considered ACS, pericarditis and myocarditis, chest wall pain and costochondritis, pleurisy. I considered pulmonary edema and heart failure exacerbation given the trace peripheral edema though the patient has no history of same. No wheezing to suggest reactive airw ay disease exacerbation. The patient is without DVT symptoms, personal history or hypoxia to suggest pulmonary embolism, and the patient's symptoms are more concerning for an infectious process. However, he does not meet PERC criteria for PE rule out given his tachycardia. We will obtain a Fluvid swab, chest x-ray, and laboratory studies to include CBC, CMP, magnesium, troponin, D-dimer and BNP. ED Course: I reviewed the patient's x-ray, which shows a left upper lobe pneumonia, most consistent with the patient's symptoms. EKG reviewed by myself showing no acute ischemia, interval abnormality, or ectopy. I independently interpreted the laboratory studies, which show no significant leukocytosis, anemia, or thrombocytopenia. The chemistry panel is without evidence of electrolyte abnormality, kidney dysfunction, or liver injury. COVID and influenza screening was negative, BNP is not significantly elevated at 644, initial troponin 63 which is below our cutoff and in this patient without active chest pain, and a more compelling reason for his back pain, I do not see an indication for repeat studies. The D-dimer was 663, which in this patient for who PE is not the leading diagnosis, is negative per years criteria and does not require further CT imaging. First doses of amoxicillin and azithromycin were provided and prescriptions for same were sent to his pharmacy, along with a prescription for Tessalon Perles. The patient has a primary care provider with whom he needs to follow-up to discuss reinitiation of his antihypertensive medications and for follow-up after this visit. At this time, the patient has had a full medical evaluation and is safe for discharge to home. They are hemodynamically stable, ambulatory, and tolerating PO. They are understanding of the follow-up plan and return precautions. They left our facility without incident. Kyara Garcia MD Related Data Home Medications ?Medication ?Instructions ?Recorded ?Confirmed aspirin 81 mg tablet,delayed 81 mg PO DAILY 02/19/18 09/03/24 release (Dax Low Dose Aspirin) ibuprofen 800 mg tablet 800 mg PO Q8H PRN pain #14 tabs 02/19/18 09/03/24 omeprazole magnesium 20 mg 40 mg PO DAILY PRN 02/19/18 09/03/24 tablet,delayed release (Prilosec OTC) amlodipine 5 mg tablet 5 mg PO DAILY #30 tabs 12/10/20 09/03/24 diltiazem HCl 240 mg 240 mg PO DAILY 12/10/20 09/03/24 capsule,extended release 24 hr hydrochlorothiazide 25 mg tablet 25 mg PO DAILY 12/10/20 09/03/24 hydroxyzine HCl 25 mg tablet 25 mg PO TID 12/10/20 09/03/24 amoxicillin 500 mg capsule 1,000 mg (2 x 500 mg) PO TID 5 09/03/24 days #30 caps azithromycin 250 mg tablet 250 mg PO DAILY 4 days #4 tabs 09/03/24 benzonatate 100 mg capsule 100 mg PO TID PRN #14 caps 09/03/24 Previous Rx's ?Medication ?Instructions ?Recorded ibuprofen 800 mg tablet 800 mg PO Q8H PRN pain #14 tabs 02/19/18 amlodipine 5 mg tablet 5 mg PO DAILY #30 tabs 12/10/20 amoxicillin 500 mg capsule 1,000 mg (2 x 500 mg) PO TID 5 09/03/24 days #30 caps azithromycin 250 mg tablet 250 mg PO DAILY 4 days #4 tabs 09/03/24 benzonatate 100 mg capsule 100 mg PO TID PRN #14 caps 09/03/24 Allergies Allergy/AdvReac Type Severity Reaction Status Date / Time hydromorphone HCl (From AdvReac Severe violent Unverified 09/03/24 10:47 Dilaudid) behavior morphine AdvReac Severe violent Unverified 09/03/24 10:47 behavior hydromorphone (From Dilaudid) AdvReac Intermediate Psychosis Unverified 09/03/24 10:47 General Stated Complaint: RespSymp MANE: 2 Course Vital Signs Vital signs: Vital Signs Temperature 37.9 C H 09/03/24 10:41 Pulse 102 H 09/03/24 10:41 Respiratory Rate 24 09/03/24 10:41 Blood Pressure 188/104 H 09/03/24 10:41 Pulse Oximetry 95 09/03/24 10:41 Temperature 37.9 C H 09/03/24 10:41 Temperature Source Oral 09/03/24 10:41 Pulse 102 H 09/03/24 10:41 Respiratory Rate 24 09/03/24 10:41 Respiratory Effort Short of Breath 09/03/24 10:54 Respiratory Depth Normal 09/03/24 10:54 Blood Pressure 188/104 H 09/03/24 10:41 Pulse Oximetry 95 09/03/24 10:41 Oxygen Delivery Method Room Air 09/03/24 10:41 Oxygen Flow Rate 0 09/03/24 10:41 Pain Level 8 09/03/24 10:54 Medical Decision Making Quality:SDOH Health Related Social Needs: No Data to Display PFSH All Active Problems (Updated 09/03/24 @ 12:01 by Kyara Garcia MD) Left upper lobe pneumonia (Acute) Hypertension (Chronic) Medical History (Updated 09/03/24 @ 12:01 by Kyara Garcia MD) Obesity ALISIA on CPAP GERD (gastroesophageal reflux disease) Hypertension Surgical History (Updated 12/13/21 @ 08:53 by Erna Hui DO) History of dental surgery History of knee surgery Social History Smoking/Tobacco Use Status: Current every day Tobacco Type: cigarettes Tobacco: How many years used: 20 Smoking risk assessment performed?: Yes Alcohol Intake: current Alcohol Intake frequency: holidays/special occasions only Drug use: Never Substance use type: does not use Do you feel safe at home: Yes Do you feel safe in your relationship?: Yes
[2024-09-03 11:15] LABS: Abs Immature Grans 0.02 10^3/uL (0.0-0.06); Absolute Basophil Count 0.03 10^3/uL (0.0-0.2); Absolute Eosinophil Count 0.02 10^3/uL (0.0-0.7); Absolute Lymphocyte Count 0.67 10^3/uL (1.2-3.4); Absolute Monocyte Count 0.69 10^3/uL (0.1-0.8); Absolute Neutrophil Count 6.34 10^3/uL (1.2-6.7); Basophils % 0.4 %; Eosinophils % 0.3 %; HGB 16.1 g/dL (13.5-17.5); Immature Grans % 0.3 %; Lymphocytes % 8.6 %; MCH 30.8 pg (27.0-33.0); MCHC 33.5 % (32.0-36.0); MCV 92 fL (80-95); MPV 9.2 fL (8.0-11.0); Monocytes % 8.9 %; Neutrophils % 81.5 %; Platelet Count 198 10^3/uL (130-400); RBC 5.23 10^6/uL (4.36-5.78); RDW 12.7 % (11.8-14.1); RDW-SD 42.7 fL; WBC 7.77 10^3/uL (4.4-10.8)
--- NOTE | 2024-09-03 11:23 | DI.RAD_ITS ---
Exam(s) XR CHEST 2V PA LATERAL EXAM: XR CHEST 2V PA LATERAL CLINICAL HISTORY: SOB, cough TECHNIQUE: 2D digital imaging was performed. Two views. COMPARISON: No exams were available for comparison FINDINGS: HEART: Mildly enlarged. Aorta: Not dilated. PULMONARY VASCULATURE: Normal. MEDIASTINUM: Unremarkable. LUNGS: 80 density seen in the left upper lobe and left perihilar region suspicious for pneumonia.. PLEURAL SPACE: No pleural effusion or pneumothorax. BONE:Unremarkable for age. SOFT TISSUES: Unremarkable. IMPRESSION: Left upper lobe pneumonia. DATA REPOSITORY: RADIATION DOSE DELIVERED:
[2024-09-03 11:39] LABS: ALT 33 U/L (16-63); AST 22 U/L (15-37); Albumin 3.8 g/dL (3.4-5.0); Alkaline Phosphatase 66 U/L (46-116); Anion Gap 9.2 mmol/L (3-11); BUN 10 mg/dL (7-18); Bilirubin, Total 0.7 mg/dL (0.2-1.0); CO2 30.8 mmol/L (21.0-32.0); CREATININE 0.9 mg/dL (0.70-1.30); Chloride 102 mmol/L (98-107); Estimated GFR 108.01 (mL/min/1.73m2); Glucose 116 mg/dL (74-106); Magnesium 1.7 mg/dL; NT-proBNP 644 pg/mL (<300); Sodium 142 mmol/L (136-145); Total Protein 7.6 g/dL (6.4-8.2); Troponin I 63 ng/L (<or=76)
[2024-09-03 11:45] LABS: D-Dimer 663 ng/mlFEU (<500)
[2024-09-03] MEDS: Azithromycin 250 MG TAB 500 MG PO (11:45)
[2024-09-03] MEDS: Amoxicillin 500 MG CAP 1000 MG PO (11:45)
[2024-09-03 11:46] LABS: COVID-19 PCR Negative (Negative); Influenza A PCR Negative (Negative); Influenza B PCR Negative (Negative); RSV PCR Negative (Negative)
[2024-09-03 11:52] LABS: Source Nasopharynx
== END 2024-09-03 12:16 | disposition home or self-care (01) ==
PROVIDERS: Emergency Provider Emergency Medicine; PCP Internal Medicine
DX: J18.9 Pneumonia, unspecified organism (principal); I10 Essential (primary) hypertension; F17.210 Nicotine dependence, cigarettes, uncomplicated
CPT/HCPCS: 36415; 80053; 87637; 93005; 99284; 71046; 83735; 83880; 84484; 85025; 85379; 93010

== ENCOUNTER 2024-11-14 11:00 | Outpatient (RCR) | payer OTHER, SELFPAY ==
--- NOTE | 2024-11-17 12:45 | RT.EKG_ITS ---
APPROVED REPORT Exam: Resting ECG Reason for Exam: cardiac rehab intake Patient Location: O HR:85 bpm ECG Measurements Heart Rate 85 AXIS CO 192 P 46 QRSd 95 QRS 38 QT 371 T 80 QTc 442 Conclusion Sinus rhythm...normal P axis, V-rate 50- 99 Anterior infarct, old...Q >40mS, abnormal ST-T, V2-V5 Baseline wander in lead(s) V3
== END 2024-11-15 23:59 | disposition home or self-care (01) ==
LOC: CR 11:00
PROVIDERS: PCP Internal Medicine; Visit Provider Internal Medicine Cardiovascular Disease
DX: I50.20 Unspecified systolic (congestive) heart failure (principal); Z51.89 Encounter for other specified aftercare
CPT/HCPCS: S9472

== ENCOUNTER 2024-12-03 13:00 | Outpatient (RCR) | payer OTHER, SELFPAY | END 2024-12-15 23:59 | disposition home or self-care (01) | LOC: CR 13:00 | PROVIDERS: PCP Internal Medicine; Visit Provider Internal Medicine Cardiovascular Disease | DX: I50.21 Acute systolic (congestive) heart failure (principal); Z51.89 Encounter for other specified aftercare | CPT/HCPCS: S9472 ==